=== PATIENT | male | born 1965 | race Caucasian/White ===

== ENCOUNTER 2021-02-07 10:31 | Outpatient (REF) | payer BC, SELFPAY ==
[2021-02-07 11:35] LABS: COVID-19 Test Positive (Negative)
== END 2021-02-07 10:32 | disposition home or self-care (01) ==
LOC: HO.LAB 10:31
PROVIDERS: Visit Provider Internal Medicine
DX: Z20.822 Contact with and (suspected) exposure to COVID-19 (principal)
CPT/HCPCS: 36415; 87635; C9803

== ENCOUNTER 2022-12-10 13:44 | Outpatient (RCR) | payer OTHER, SELFPAY | END 2023-01-15 08:00 | disposition home or self-care (01) | LOC: HO.WCC 13:44 | PROVIDERS: PCP Internal Medicine; Visit Provider Physician Assistant | DX: E11.622 Type 2 diabetes mellitus with other skin ulcer (principal); I87.332 Chronic venous hypertension (idiopathic) with ulcer and inflammation of left lower extremity; L97.822 Non-pressure chronic ulcer of other part of left lower leg with fat layer exposed; E11.40 Type 2 diabetes mellitus with diabetic neuropathy, unspecified; F10.90 Alcohol use, unspecified, uncomplicated | CPT/HCPCS: 11042; 11104; 88305; 99212 ==